=== PATIENT | female | born 1990 | race Caucasian/White ===

== ENCOUNTER 2016-09-28 11:44 | Emergency (ER) | payer MEDICAID ==
[~2016-09-28] VITALS: Ht 149.9 cm; Wt 87.5 kg
[2016-09-28 11:54] VITALS: BP 123/59; PULSE 78; RESP 18; TEMP 98.1; O2SAT 99
[2016-09-28 13:10] LABS: BASOPHILS % (AUTO) 0.3 % (0.0-2.0); EOSINOPHILS # (AUTO) 0.2 K/uL (0.0-0.4); EOSINOPHILS % (AUTO) 1.6 % (0.0-4.0); HEMATOCRIT 33.5 % (36-48); HEMOGLOBIN 11.4 g/dL (12.0-16.0); LYMPHOCYTES # (AUTO) 2.9 K/uL (1.0-5.5); LYMPHOCYTES % (AUTO) 26.3 % (20.5-51.5); MEAN CORPUSCULAR HEMOGLOBIN 30 pg (27-31); MEAN CORPUSCULAR HGB CONC 34 % (32-36); MEAN CORPUSCULAR VOLUME 89 fL (79.0-98.0); MONOCYTES # (AUTO) 0.6 K/uL (0.0-1.0); MONOCYTES % (AUTO) 5.4 % (1.7-9.3); NEUTROPHILS # (AUTO) 7.5 K/uL (1.8-7.7); NEUTROPHILS % (AUTO) 66.4 % (40.0-70.0); PLATELET COUNT (AUTO) 253 K/uL (130-430); RED BLOOD CELL COUNT(AUTO) 3.77 MIL/uL (4.2-6.2); RED CELL DISTRIBUTION WIDTH 11.9 % (9.0-15.0); WHITE BLOOD COUNT (AUTO) 11.2 K/uL (4.8-10.8)
[2016-09-28 13:20] LABS: INR 0.9 (0.8-1.2)
[2016-09-28 13:31] LABS: CALCIUM 8.7 mg/dL (8.4-11.0); CREATININE 0.39 mg/dL (0.55-1.30); POTASSIUM 3.6 mmol/L (3.5-5.1)
[2016-09-28 13:36] LABS: ALBUMIN 3.3 g/dL (3.4-4.8); TOTAL BILIRUBIN 0.1 mg/dL (0.0-1.0); TOTAL PROTEIN, SERUM 7.6 g/dL (6.4-8.3)
[2016-09-28 14:26] VITALS: BP 135/68; PULSE 74; RESP 19; TEMP 99; O2SAT 100
== END 2016-09-28 14:26 | disposition home or self-care (01) ==
LOC: SED 11:44
DX: O26.892 Other specified pregnancy related conditions, second trimester (principal); L81.9 Disorder of pigmentation, unspecified; M79.89 Other specified soft tissue disorders; Z3A.16 16 weeks gestation of pregnancy
CPT/HCPCS: 36415; 80053; 85025; 85379; 85610-TC; 85730-TC; 93005; 93971; 99285

== ENCOUNTER 2018-02-11 20:32 | Emergency (ER) | payer MEDICAID ==
[~2018-02-11] VITALS: Ht 149.9 cm; Wt 81.6 kg
[2018-02-11 21:19] VITALS: BP_SYST 120
[2018-02-12 00:03] VITALS: BP_SYST 113
== END 2018-02-12 00:03 | disposition home or self-care (01) ==
LOC: SED 20:32
DX: S92.912A Unspecified fracture of left toe(s), initial encounter for closed fracture (principal); W22.8XXA Striking against or struck by other objects, initial encounter; Y93.01 Activity, walking, marching and hiking; Y92.89 Other specified places as the place of occurrence of the external cause; Y99.8 Other external cause status
CPT/HCPCS: 99284

== ENCOUNTER 2018-05-21 02:59 | Emergency (ER) | payer MEDICAID ==
[~2018-05-21] VITALS: Ht 149.9 cm; Wt 87.1 kg
[2018-05-21 03:10] VITALS: BP_SYST 128
[2018-05-21 03:37] VITALS: BP_SYST 122
== END 2018-05-21 03:37 | disposition home or self-care (01) ==
LOC: SED 02:59
DX: K52.9 Noninfective gastroenteritis and colitis, unspecified (principal)
CPT/HCPCS: 99283

== ENCOUNTER 2018-09-06 14:31 | Emergency (ER) | payer MEDICAID ==
[~2018-09-06] VITALS: Ht 149.9 cm; Wt 87.1 kg
[2018-09-06 14:41] VITALS: BP_SYST 137
--- NOTE | 2018-09-06 14:46 | NUR ---
Patient triaged and placed in waiting room. Patient appears in no acute distress at this time. Accompanied by SELF, awaiting available bed, and MD notified of need for MSE.
--- NOTE | 2018-09-06 16:40 | NUR ---
Pt placed in bed 3
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
--- NOTE | 2018-09-06 16:50 | NUR ---
ER at bedside examining patient.
--- NOTE | 2018-09-06 16:55 | NUR ---
C-spine applied to pt per MD.
--- NOTE | 2018-09-06 17:39 | NUR ---
Off Unit Pt off unit to radiology.
--- NOTE | 2018-09-06 17:49 | NUR ---
Returned to Unit Pt returned to unit via wheelchair from radiology.
--- NOTE | 2018-09-06 19:13 | NUR ---
Endorsed pt to [facility], no signs of acute distress.
[2018-09-06 20:21] VITALS: BP_SYST 137
--- NOTE | 2018-09-06 20:21 | NUR ---
Patient given written and verbal discharge instructions and verbalizes understanding. ER MD Dr. Voss discussed with patient the results and treatment provided. Patient in stable condition. ID arm band removed. Rx of [place] given. Patient educated on pain management and to follow up with PMD. Pain Scale 0/10. Opportunity for questions provided and answered. Medication side effect fact sheet provided.
== END 2018-09-06 20:21 | disposition home or self-care (01) ==
LOC: SED 14:31
DX: M25.512 Pain in left shoulder (principal); R51 Headache; M54.2 Cervicalgia; R03.0 Elevated blood-pressure reading, without diagnosis of hypertension; V43.52XA Car driver injured in collision with other type car in traffic accident, initial encounter; Y93.89 Activity, other specified; Y92.410 Unspecified street and highway as the place of occurrence of the external cause; Y99.8 Other external cause status
CPT/HCPCS: 70450-TC; 71045; 72100-TC; 72125-TC; 73030; 81025; 99284

== ENCOUNTER 2019-09-01 18:06 | Emergency (ER) | payer MEDICAID ==
[~2019-09-01] VITALS: Ht 149.9 cm; Wt 84.8 kg
[2019-09-01 18:09] VITALS: BP_SYST 114
--- NOTE | 2019-09-01 19:32 | NUR ---
Patient to ER bed 07 to gown for evaluation. Side rails up.
--- NOTE | 2019-09-01 19:34 | NUR ---
Pt brought by self,A&Ox4, pt presens to ER with chest wall pain increasing with inspiration , skin pink and warm , cap refill <3, ambulatory, afebrile, will cont to monitor .
[2019-09-01] MEDS ORDERED: PREDNISONE 20 MG TABLET PO ONE (20:30)
--- NOTE | 2019-09-01 20:30 | NUR ---
Patient went to radiology in stable condition.
--- NOTE | 2019-09-01 20:39 | NUR ---
Patient returned from radiology in stable condition.
[2019-09-01 21:28] VITALS: BP_SYST 123
--- NOTE | 2019-09-01 21:28 | NUR ---
Patient given written and verbal discharge instructions and verbalizes understanding. ER MD discussed with patient the results and treatment provided. Patient in stable condition. ID arm band removed. Rx of Motrin, Albuterol, Promethazine given. Patient educated on pain management and to follow up with PMD. Pain Scale 0. Opportunity for questions provided and answered. Medication side effect fact sheet provided.
== END 2019-09-01 21:28 | disposition home or self-care (01) ==
LOC: SED 18:06
DX: J40 Bronchitis, not specified as acute or chronic (principal); F17.210 Nicotine dependence, cigarettes, uncomplicated
CPT/HCPCS: 71045; 99283; J7512

== ENCOUNTER 2020-06-07 15:40 | Emergency (ER) | payer MEDICAID, OTHER ==
[~2020-06-07] VITALS: Ht 149.9 cm; Wt 83.5 kg
[2020-06-07 15:45] VITALS: BP_SYST 116
--- NOTE | 2020-06-07 15:45 | NUR ---
Patient to ER bed 3 to gown for evaluation. Side rails up. Report given to ALETHA.
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
--- NOTE | 2020-06-07 16:00 | NUR ---
DR GILLIS AT BEDSIDE FOR EVALUATION
[2020-06-07 16:41] VITALS: BP_SYST 116
--- NOTE | 2020-06-07 16:41 | NUR ---
Patient given written and verbal discharge instructions and verbalizes understanding. ER MD discussed with patient the results and treatment provided. Patient in stable condition. ID arm band removed. Rx of Naprosyn given. Patient educated on pain management and to follow up with PMD. Pain Scale 0/10. Opportunity for questions provided and answered. Medication side effect fact sheet provided.
== END 2020-06-07 16:41 | disposition home or self-care (01) ==
LOC: SED 15:40
DX: S93.401A Sprain of unspecified ligament of right ankle, initial encounter (principal); F12.90 Cannabis use, unspecified, uncomplicated; W01.0XXA Fall on same level from slipping, tripping and stumbling without subsequent striking against object, initial encounter; Y93.89 Activity, other specified; Y92.89 Other specified places as the place of occurrence of the external cause; Y99.8 Other external cause status
CPT/HCPCS: 99284

== ENCOUNTER 2021-06-16 06:44 | Emergency (ER) | payer OTHER ==
[~2021-06-16] VITALS: Ht 149.9 cm; Wt 86.2 kg
--- NOTE | 2021-06-16 06:59 | NUR ---
Patient ambulatory to bed 8 for evaluation
[2021-06-16 07:00] VITALS: BP_SYST 129
--- NOTE | 2021-06-16 07:09 | NUR ---
ER at bedside examining patient.
--- NOTE | 2021-06-16 07:10 | NUR ---
Pt. came in with concerns over vaginal bleeding since 3am, pt. states very small amount but currently , took 4 home test all + does not know how many weeks, denies any pain at this time but states for last 3 or 4 days has had on and off back ache and cramping 4/10 at worst and has resolved with no intervention but reoccurs often.
--- NOTE | 2021-06-16 07:19 | NUR ---
labs drawn, pt. to radiology for U/S
[2021-06-16 07:27] LABS: BASOPHILS # (AUTO) 0.1 K/uL (0.0-0.2); BASOPHILS % (AUTO) 1.1 % (0.0-2.0); EOSINOPHILS # (AUTO) 0.7 K/uL (0.0-0.4); EOSINOPHILS % (AUTO) 6.6 % (0.0-4.0); HEMATOCRIT 38.4 % (36-48); HEMOGLOBIN 12.7 g/dL (12.0-16.0); LYMPHOCYTES # (AUTO) 3.3 K/uL (1.0-5.5); LYMPHOCYTES % (AUTO) 33.8 % (20.5-51.5); MEAN CORPUSCULAR HEMOGLOBIN 30 pg (27-31); MEAN CORPUSCULAR HGB CONC 33 % (32-36); MEAN CORPUSCULAR VOLUME 91 fL (79.0-98.0); MONOCYTES # (AUTO) 0.7 K/uL (0.0-1.0); MONOCYTES % (AUTO) 6.8 % (1.7-9.3); NEUTROPHILS # (AUTO) 5.1 K/uL (1.8-7.7); NEUTROPHILS % (AUTO) 51.7 % (40.0-70.0); PLATELET COUNT (AUTO) 278 K/uL (130-430); RED BLOOD CELL COUNT(AUTO) 4.21 MIL/uL (4.2-6.2); RED CELL DISTRIBUTION WIDTH 12.6 % (9.0-15.0); WHITE BLOOD COUNT (AUTO) 9.8 K/uL (4.8-10.8)
--- NOTE | 2021-06-16 08:50 | NUR ---
Patient given written and verbal discharge instructions and verbalizes understanding. ER MD discussed with patient the results and treatment provided. Patient in stable condition. ID arm band removed. No prescriptions given. Patient educated on pain management and to follow up with PMD. Pain Scale 0. Opportunity for questions provided and answered. Medication side effect fact sheet provided.
[2021-06-16 08:55] VITALS: BP_SYST 129
== END 2021-06-16 08:50 | disposition home or self-care (01) ==
LOC: SED 06:44
DX: O20.0 Threatened abortion (principal); Z3A.01 Less than 8 weeks gestation of pregnancy
CPT/HCPCS: 36415; 76801; 76817; 81002; 81025; 84702; 85025; 86901; 99284

== ENCOUNTER 2021-10-27 15:31 | Observation (INO) | payer OTHER ==
[~2021-10-27] VITALS: Ht 149.9 cm; Wt 93.0 kg
[2021-10-27] MEDS ORDERED: TERBUTALINE SULFATE 1 MG/ML VIAL SUBCUT PRN (16:00)
== END 2021-10-27 18:30 | disposition home or self-care (01) ==
LOC: SPU 15:31
PROVIDERS: ADMIT Obstetrics & Gynecology; ATTEND Obstetrics & Gynecology
DX: O26.892 Other specified pregnancy related conditions, second trimester (principal); R10.9 Unspecified abdominal pain; W51.XXXA Accidental striking against or bumped into by another person, initial encounter; Y93.89 Activity, other specified; Y92.098 Other place in other non-institutional residence as the place of occurrence of the external cause
CPT/HCPCS: 81002; G0378

== ENCOUNTER 2021-10-28 09:52 | Emergency (ER) | payer OTHER, MEDICAID ==
[~2021-10-28] VITALS: Ht 149.9 cm; Wt 93.0 kg
[2021-10-28 09:52] VITALS: BP_SYST 117
[2021-10-28 11:03] VITALS: BP_SYST 117
== END 2021-10-28 11:01 | disposition home or self-care (01) ==
LOC: SED 09:52 → EDSTATUS 09:52 → SED 11:01
DX: S13.4XXA Sprain of ligaments of cervical spine, initial encounter (principal); S09.90XA Unspecified injury of head, initial encounter; W18.39XA Other fall on same level, initial encounter; Y93.89 Activity, other specified; Y92.89 Other specified places as the place of occurrence of the external cause; Y99.8 Other external cause status
CPT/HCPCS: 59025; 70450-TC; 72125-TC; 76376; 81002; 99284

== ENCOUNTER 2022-01-26 12:35 | Observation (INO) | payer BC, MEDICAID, OTHER ==
[~2022-01-26] VITALS: Ht 149.9 cm; Wt 97.5 kg
[2022-01-26 12:44] VITALS: BP_SYST 114
[2022-01-26 13:02] VITALS: BP_SYST 114
== END 2022-01-26 15:25 | disposition home or self-care (01) ==
LOC: SPU 12:35 → SED 12:35 → EDSTATUS 15:07
PROVIDERS: ADMIT Obstetrics & Gynecology; ATTEND Obstetrics & Gynecology
DX: O98.513 Other viral diseases complicating pregnancy, third trimester (principal); U07.1 COVID-19; O36.8130 Decreased fetal movements, third trimester, not applicable or unspecified; O26.893 Other specified pregnancy related conditions, third trimester; R06.02 Shortness of breath; Z3A.38 38 weeks gestation of pregnancy
CPT/HCPCS: 81002; 94760; 99284; G0378

== ENCOUNTER 2022-02-13 06:42 | Inpatient (IN) | payer BC ==
[~2022-02-13] VITALS: Ht 149.9 cm; Wt 104.3 kg
[2022-02-13] MEDS ORDERED: LR 1,000 ML IV SCH (08:30)
[2022-02-13] MEDS ORDERED: TERBUTALINE SULFATE 1 MG/ML VIAL SUBCUT ONE (08:30)
[2022-02-13] MEDS ORDERED: NALBUPHINE HCL 10 MG/ML AMP IVP PRN (08:30)
[2022-02-13 08:43] VITALS: BP_SYST 116
[2022-02-13 09:32] LABS: BASOPHILS # (AUTO) 0.1 K/uL (0.0-0.2); BASOPHILS % (AUTO) 0.5 % (0.0-2.0); EOSINOPHILS # (AUTO) 0.1 K/uL (0.0-0.4); EOSINOPHILS % (AUTO) 1.3 % (0.0-4.0); HEMOGLOBIN 10.8 g/dL (12.0-16.0); LYMPHOCYTES # (AUTO) 2.8 K/uL (1.0-5.5); LYMPHOCYTES % (AUTO) 25.6 % (20.5-51.5); MEAN CORPUSCULAR HEMOGLOBIN 29 pg (27-31); MEAN CORPUSCULAR HGB CONC 34 % (32-36); MEAN CORPUSCULAR VOLUME 85 fL (79.0-98.0); MONOCYTES # (AUTO) 0.7 K/uL (0.0-1.0); MONOCYTES % (AUTO) 6.9 % (1.7-9.3); NEUTROPHILS # (AUTO) 7.1 K/uL (1.8-7.7); NEUTROPHILS % (AUTO) 65.7 % (40.0-70.0); PLATELET COUNT (AUTO) 309 K/uL (130-430); RED BLOOD CELL COUNT(AUTO) 3.77 MIL/uL (4.2-6.2); RED CELL DISTRIBUTION WIDTH 14.8 % (9.0-15.0); WHITE BLOOD COUNT (AUTO) 10.7 K/uL (4.8-10.8)
[2022-02-13] MEDS: OXYTOCIN/0.9 % SODIUM CHLORIDE 1,000 ML IV SCH (11:39)
[2022-02-13] MEDS ORDERED: ROPIVACAINE HCL/PF 0.2% 200 ML ONE (23:39)
[2022-02-13] MEDS ORDERED: fentaNYL CITRATE/PF 100 MCG/2 ML AMP ONE (23:39)
[2022-02-14] MEDS ORDERED: FENT2mCg/mL-ROPIVA0.2%/NS EPID 200 ML EP SCH (00:30)
[2022-02-14] MEDS ORDERED: LR 500 ML IV ONE (00:30)
[2022-02-14] MEDS: OXYTOCIN/0.9 % SODIUM CHLORIDE 1,000 ML IV SCH (03:07)
[2022-02-14] MEDS ORDERED: LIGHT MINERAL OIL 10 ML VIAL MC ONE (07:50)
[2022-02-14] MEDS ORDERED: NALOXONE HCL 0.4 MG/ML AMP (NARCAN) ONE (07:51)
[2022-02-14] MEDS ORDERED: LIDOCAINE PF 1% 30ML(POUR BTL) INJ ONE (07:51)
[2022-02-14] MEDS ORDERED: OXYTOCIN/0.9 % SODIUM CHLORIDE 1,000 ML IV ONE (09:15)
[2022-02-14] MEDS ORDERED: DERMOPLAST SPRAY TP PRN (09:15)
[2022-02-14] MEDS ORDERED: DIPH-TET-PERTUS Vaccine 0.5 ML VIAL (ADACEL) I.M. PRN (09:15)
[2022-02-14] MEDS ORDERED: WITCH HAZEL LEAF 1 MED.PAD MED.PAD TP PRN (09:15)
[2022-02-14] MEDS ORDERED: OXYCODONE/ACETAMINOPHEN 5-325 TABLET PO PRN ×2 (09:15)
[2022-02-14] MEDS ORDERED: LANOLIN 7 GM OINT. TP PRN (09:15)
[2022-02-14] MEDS ORDERED: HYDROcodone/ACETAMIN 5-325 MG TAB (NORCO/ VICODIN) PO PRN (09:15)
[2022-02-14] MEDS ORDERED: METHYLERGONOVINE MALEATE 0.2 MG TABLET PO PRN (09:15)
[2022-02-14] MEDS: IBUPROFEN 600 MG TABLET PO SCH ×3 (11:53→23:57)
[2022-02-14] MEDS ORDERED: TEMAZEPAM 15 MG CAPSULE PO PRN (21:00)
[2022-02-15] MEDS: IBUPROFEN 600 MG TABLET PO SCH ×4 (05:54→23:50)
[2022-02-15 06:38] LABS: HEMATOCRIT 26.8 % (36-48); HEMOGLOBIN 8.9 g/dL (12.0-16.0)
[2022-02-15] MEDS: DOCUSATE SODIUM 100 MG CAPSULE PO SCH (08:16)
[2022-02-16] MEDS: IBUPROFEN 600 MG TABLET PO SCH ×2 (05:47→12:20)
[2022-02-16] MEDS: DOCUSATE SODIUM 100 MG CAPSULE PO SCH (09:28)
[2022-02-16 22:06] LABS: FTA-Ab (T PALLIDUM) Non Reactive (Non Reactive)
== END 2022-02-16 15:55 | disposition home or self-care (01) | DRG 560 ==
LOC: SPU 08:03
PROVIDERS: ADMIT Obstetrics & Gynecology; ATTEND Obstetrics & Gynecology
PROC: 10E0XZZ Delivery of Products of Conception, External Approach (ICD-10-PCS; principal; 2022-02-14)
PROC: 3E0R3BZ Introduction of Anesthetic Agent into Spinal Canal, Percutaneous Approach (ICD-10-PCS; 2022-02-14)
PROC: 00HU33Z Insertion of Infusion Device into Spinal Canal, Percutaneous Approach (ICD-10-PCS; 2022-02-14)
DX: O99.02 Anemia complicating childbirth (principal); Z37.0 Single live birth; D64.9 Anemia, unspecified; Z20.822 Contact with and (suspected) exposure to COVID-19; Z3A.40 40 weeks gestation of pregnancy
CPT/HCPCS: 36415; 76815; 81002; 85018; 85025; 86592; 86780; 86886; 86900; 86901; 90715; J2001; J2310; J2590; J3010

== ENCOUNTER 2024-05-23 09:10 | Emergency (ER) | payer BC ==
[~2024-05-23] VITALS: Ht 149.9 cm; Wt 79.4 kg
[2024-05-23 09:20] VITALS: BP_SYST 134; PULSE 79; RESP 18; TEMP 98.3; O2SAT 98
[2024-05-23] MEDS: ACETAMINOPHEN 500 MG TABLET PO ONE (10:15)
[2024-05-23 10:23] VITALS: BP_SYST 132; PULSE 85; RESP 18; TEMP 97.2; O2SAT 98
== END 2024-05-23 10:27 | disposition home or self-care (01) ==
LOC: SED 09:10
DX: S06.0X0A Concussion without loss of consciousness, initial encounter (principal); S01.511A Laceration without foreign body of lip, initial encounter; S80.211A Abrasion, right knee, initial encounter; W22.8XXA Striking against or struck by other objects, initial encounter; Y93.89 Activity, other specified; Y92.89 Other specified places as the place of occurrence of the external cause; Y99.8 Other external cause status
CPT/HCPCS: 99282